=== PATIENT | female | born 1950 | race Two or more races ===

== ENCOUNTER 2023-12-31 15:55 | Inpatient (IN) | payer OTHER ==
[~2023-12-31] VITALS: Ht 165.1 cm; Wt 68.0 kg
[2023-12-31] MEDS ORDERED: LANTUS SOL100 UNIT/1 SQ (16:25)
[2023-12-31] MEDS ORDERED: EZALLOR SPRINKL10 MG PO (16:26)
[2023-12-31] MEDS ORDERED: FENOFIBRATE50 MG PO (16:26)
[2023-12-31] MEDS ORDERED: COZAAR25 MG PO (16:26)
[2023-12-31] MEDS ORDERED: HUMALOG100 UNIT/2 SQ (16:26)
[2023-12-31] MEDS ORDERED: LEVOTHYROXINE25 MCG PO (16:26)
[2023-12-31] MEDS ORDERED: GUAIFEN/DEXTROMETHORPHAN/PE 10 ML BLIST.PACK PO ONE (17:22)
[2023-12-31] MEDS ORDERED: METHYLPREDNISOLONE SOD SUCC 125 MG VIAL ONE (17:22)
[2023-12-31] MEDS ORDERED: METHYLPREDNISOLONE SOD SUCC 125 MG VIAL IV ONE (17:30)
[2023-12-31] MEDS ORDERED: GUAIFENESIN/DEXTROMETHORPHAN 10ML BLIST.PACK PO ONE (17:30)
[2023-12-31] MEDS ORDERED: LEVALBUTEROL HCL 1.25 MG/3 ML SOLUTION IH SCH ×2 (17:30→22:42)
[2023-12-31 17:46] LABS: ABG PH 7.399 (7.35-7.45); ABG PO2 68.2 mmHg (80-100); ABG pCO2 38.3 mmHg (35-45); BASE EXCESS -1.3 mmol/l; BICARBONATE 23.2 mmol/l (23-25); SaO2 93.3 %; Tco2 24.3 mmol/l
[2023-12-31] MEDS ORDERED: LEVALBUTEROL HCL 0.63 MG/3 ML SOLUTION IH ONE (17:52)
[2023-12-31 17:56] LABS: HEMATOCRIT 29.1 % (36.0-45.00); HEMOGLOBIN 9.2 g/dL (12.0-15.00); MEAN CELL VOLUME 73.2 fL (80.00-100.00); MEAN CORPUSCULAR HGB CONC 31.5 g/dl (32.0-36.0); PLATELET COUNT 320 K/uL (150-450); RED BLOOD COUNT 3.97 M/uL (4.00-6.00)
[2023-12-31 18:06] LABS: allen test SATISFACTORY; o2 21 %; puncture site RADIAL RIGHT
[2023-12-31 18:14] LABS: ALBUMIN 3.5 gm/dL (3.4-5.0); BILIRUBIN TOTAL 0.17 mg/dL (0.3-1.2); CALCIUM 9.4 mg/dL (8.5-10.1); CREATININE SERUM 1.4 mg/dL (0.55-1.02); GFR 36.76; GLOBULINA 4.2 G/DL (2.4-3.5); POTASSIUM 4.62 mEq/L (3.5-5.1); TOTAL PROTEIN 7.7 gm/dL (6.4-8.2)
[2023-12-31] MEDS ORDERED: IPRATROPIUM BROMIDE 0.5 MG/2.5 ML AMPUL.NEB IH SCH (22:42)
[2023-12-31] MEDS ORDERED: 0.9 % SODIUM CHLORIDE 1,000 ML IV SCH (22:45)
[2023-12-31] MEDS ORDERED: MONTELUKAST SODIUM 10 MG TABLET PO SCH (22:45)
[2023-12-31] MEDS ORDERED: ACETAMINOPHEN 500 MG GEL..CAP PO PRN (22:45)
[2023-12-31] MEDS ORDERED: AZITHROMYCIN 500 MG in DEXTROSE 5 % IN WATER 250 ML IV SCH (22:46)
[2023-12-31] MEDS ORDERED: CEFTRIAXONE SODIUM 2,000 MG in 0.9 % SODIUM CHLORIDE 100 ML IV SCH (22:46)
[2023-12-31] MEDS ORDERED: INSULIN LISPRO 1,000 UNIT/10 ML UNITS SUBCUTANEO PRN (23:00)
[2023-12-31] MEDS ORDERED: DEXTROSE 50 % IN WATER 0.5 G/ML DISP.SYRIN IV PRN (23:00)
[2023-12-31] MEDS ORDERED: INSULIN GLARGINE,HUM.REC.ANLOG 1,000 UNITS/10 ML UNITS SUBCUTANEO ONE (23:30)
[2024-01-01] MEDS ORDERED: AZITHROMYCIN 500 MG VIAL IV ONE (00:22)
[2024-01-01] MEDS ORDERED: CEFTRIAXONE SODIUM 2,000 MG VIAL ONE ×2 (00:22→06:49)
[2024-01-01 00:59] LABS: INR 1.02; PARTIAL THROMBOPLASTIN TIME 24.6 SECONDS (22.0-34.0); PROTHROMBIN TIME 11.1 SECONDS (9.0-11.5)
[2024-01-01] MEDS ORDERED: METHYLPREDNISOLONE SOD SUCC 40 MG VIAL IV SCH (01:00)
[2024-01-01] MEDS ORDERED: IPRATROPIUM BROMIDE 0.5 MG/2.5 ML AMPUL.NEB IH ONE (02:12)
[2024-01-01] MEDS ORDERED: LEVALBUTEROL HCL 1.25 MG/3 ML SOLUTION IH ONE (02:13)
[2024-01-01 03:05] LABS: PH,URINE 6.5 (5.0-8.0); URINE APPEARANCE Clear; URINE BILIRRUBIN Negative (NEGATIVE); URINE BLOOD Negative; URINE COLOR Yellow; URINE KETONE Negative (NEGATIVE); URINE LEUKOCYTE Negative; URINE NITRATE Negative; URINE PROTEIN Negative (NEGATIVE); URINE UROBILINOGEN 0.2 E.U./dl
[2024-01-01 03:08] LABS: URINE BACTERIA 27.6 uL (0.0-1933); URINE EPITHELIAL CELLS 1.9 uL (0.0-38.8); URINE RBC 3.5 uL (0.0-20.8)
[2024-01-01 03:27] LABS: URINE GLUCOSE >=1000 MG/DL (NEGATIVE); URINE WBC 0.7 uL (0.0-23.2)
[2024-01-01 05:00] VITALS: BP 82/46; O2SAT 91
[2024-01-01] MEDS ORDERED: FAMOTIDINE/PF 20 MG in 0.9 % SODIUM CHLORIDE 8 ML IV PUSH SCH (09:00)
[2024-01-01] MEDS ORDERED: LOSARTAN POTASSIUM 25 MG TABLET PO SCH (09:00)
[2024-01-01] MEDS ORDERED: ENOXAPARIN SODIUM 40 MG/0.4 ML SYRINGE SUBCUTANEO SCH (09:00)
[2024-01-01] MEDS ORDERED: INSULIN LISPRO 1,000 UNIT/10 ML UNITS SUBCUTANEO SCH (09:00)
[2024-01-01 09:37] VITALS: BP 143/65; O2SAT 100
[2024-01-01 16:57] VITALS: BP 118/56; O2SAT 95
[2024-01-01] MEDS ORDERED: AZITHROMYCIN 500 MG in DEXTROSE 5 % IN WATER 250 ML IV SCH (21:00)
[2024-01-01] MEDS ORDERED: IPRATROPIUM/ALBUTEROL SULFATE 3 ML AMPUL.NEB IH SCH (21:13)
[2024-01-01] MEDS ORDERED: INSULIN GLARGINE,HUM.REC.ANLOG 1,000 UNITS/10 ML UNITS SUBCUTANEO STA (21:41)
[2024-01-02] VITALS: BP 133/63; O2SAT 99
[2024-01-02] MEDS ORDERED: METHYLPREDNISOLONE SOD SUCC 40 MG VIAL IV SCH (01:00)
[2024-01-02] MEDS ORDERED: INSULIN LISPRO 1,000 UNIT/10 ML UNITS SUBCUTANEO STA (02:01)
[2024-01-02] MEDS ORDERED: INSULIN REGULAR, HUMAN 1,000 UNIT/10 ML UNITS IV STA (02:01)
[2024-01-02 06:58] LABS: HEMOGLOBIN 9.2 g/dL (12.0-15.00); MEAN CELL VOLUME 72.7 fL (80.00-100.00); MEAN CORPUSCULAR HGB CONC 31.6 g/dl (32.0-36.0); PLATELET COUNT 335 K/uL (150-450); RED BLOOD COUNT 3.99 M/uL (4.00-6.00)
[2024-01-02 07:19] LABS: ALBUMIN 3.6 gm/dL (3.4-5.0); BILIRUBIN TOTAL 0.15 mg/dL (0.3-1.2); CALCIUM 9.1 mg/dL (8.5-10.1); CREATININE SERUM 1.14 mg/dL (0.55-1.02); GFR 46.59; GLOBULINA 4.2 G/DL (2.4-3.5); MAGNESIUM 2.1 mg/dL (1.8-2.4); PHOSPHOROUS 2.4 mg/dL (2.5-4.9); POTASSIUM 4.97 mEq/L (3.5-5.1); TOTAL PROTEIN 7.8 gm/dL (6.4-8.2)
[2024-01-02] MEDS ORDERED: CEFTRIAXONE SODIUM 2,000 MG VIAL ONE (07:23)
[2024-01-02] MEDS ORDERED: INSULIN LISPRO 1,000 UNIT/10 ML UNITS SUBCUTANEO SCH (08:00)
[2024-01-02 08:55] VITALS: BP 136/62; O2SAT 97
[2024-01-02 14:46] LABS: ABG PH 7.378 (7.35-7.45); ABG PO2 87.3 mmHg (80-100); ABG pCO2 38.5 mmHg (35-45); BASE EXCESS -2.5 mmol/l; BICARBONATE 22.2 mmol/l (23-25); SaO2 96.3 %; Tco2 23.4 mmol/l
[2024-01-02 14:54] LABS: allen test SATISFACTORY; o2 21 %; puncture site RADIAL LEFT
[2024-01-02 16:00] VITALS: BP 129/65; O2SAT 95
[2024-01-02] MEDS ORDERED: INSULIN GLARGINE,HUM.REC.ANLOG 1,000 UNITS/10 ML UNITS SUBCUTANEO SCH (21:00)
[2024-01-03] VITALS: BP 128/67; O2SAT 98
[2024-01-03] MEDS ORDERED: LEVOTHYROXINE SODIUM 125 MCG TABLET PO SCH (06:00)
[2024-01-03] MEDS ORDERED: CEFTRIAXONE SODIUM 2,000 MG VIAL ONE (07:48)
[2024-01-03] MEDS ORDERED: INSULIN LISPRO 1,000 UNIT/10 ML UNITS SUBCUTANEO SCH (08:00)
[2024-01-03 08:41] VITALS: BP 140/70; O2SAT 96
[2024-01-03] MEDS ORDERED: INSULIN GLARGINE,HUM.REC.ANLOG 1,000 UNITS/10 ML UNITS SUBCUTANEO SCH (09:00)
[2024-01-03] MEDS ORDERED: INSULIN LISPRO 1,000 UNIT/10 ML UNITS SUBCUTANEO STA (14:52)
[2024-01-03] MEDS ORDERED: INSULIN REGULAR, HUMAN 1,000 UNIT/10 ML UNITS IV STA (14:53)
[2024-01-03 16:54] VITALS: BP 160/70; O2SAT 95
[2024-01-03] MEDS ORDERED: INSULIN GLARGINE,HUM.REC.ANLOG 1,000 UNITS/10 ML UNITS SUBCUTANEO STA (21:29)
[2024-01-04 01:21] VITALS: BP 137/83; O2SAT 99
[2024-01-04 06:53] LABS: HEMATOCRIT 29.7 % (36.0-45.00); HEMOGLOBIN 9.4 g/dL (12.0-15.00); MEAN CELL VOLUME 73.5 fL (80.00-100.00); MEAN CORPUSCULAR HEMOGLOBIN 23.2 pg (27.00-32.0); MEAN CORPUSCULAR HGB CONC 31.6 g/dl (32.0-36.0); PLATELET COUNT 312 K/uL (150-450); RED BLOOD COUNT 4.04 M/uL (4.00-6.00); RED CELL DISTRIBUTION WIDTH 17.7 % (11.5-14.5)
[2024-01-04 07:32] LABS: ALBUMIN 3.3 gm/dL (3.4-5.0); BILIRUBIN TOTAL 0.22 mg/dL (0.3-1.2); CALCIUM 9.3 mg/dL (8.5-10.1); CREATININE SERUM 1.04 mg/dL (0.55-1.02); GFR 51.8; GLOBULINA 3.9 G/DL (2.4-3.5); POTASSIUM 5.23 mEq/L (3.5-5.1); TOTAL PROTEIN 7.2 gm/dL (6.4-8.2)
[2024-01-04] MEDS ORDERED: INSULIN LISPRO 1,000 UNIT/10 ML UNITS SUBCUTANEO SCH (08:00)
[2024-01-04 08:36] VITALS: BP 118/66; O2SAT 95
[2024-01-04] MEDS ORDERED: CEFTRIAXONE SODIUM 2,000 MG VIAL ONE (08:38)
[2024-01-04 16:00] VITALS: BP 143/70; O2SAT 97
[2024-01-04] MEDS ORDERED: METHYLPREDNISOLONE SOD SUCC 40 MG VIAL IV SCH (17:00)
[2024-01-04] MEDS ORDERED: levoFLOXacin IN DEXTROSE 5 % 150 ML IV SCH (17:00)
[2024-01-04] MEDS ORDERED: INSULIN REGULAR, HUMAN 1,000 UNIT/10 ML UNITS IV STA (17:38)
[2024-01-04] MEDS ORDERED: DIPHENHYDRAMINE HCL 50 MG/ML VIAL 1ML IV STA (19:25)
[2024-01-04] MEDS ORDERED: INSULIN GLARGINE,HUM.REC.ANLOG 1,000 UNITS/10 ML UNITS SUBCUTANEO SCH (21:00)
[2024-01-05 00:17] VITALS: BP 140/75; O2SAT 98
[2024-01-05] MEDS ORDERED: DIPHENHYDRAMINE HCL 50 MG/ML VIAL 1ML IV SCH (05:00)
[2024-01-05 08:24] VITALS: BP 123/62; O2SAT 95
[2024-01-05] MEDS ORDERED: CEFTRIAXONE SODIUM 2,000 MG VIAL IV SCH (09:00)
[2024-01-05] MEDS ORDERED: INSULIN GLARGINE,HUM.REC.ANLOG 1,000 UNITS/10 ML UNITS SUBCUTANEO SCH ×2 (09:00→21:00)
[2024-01-05] MEDS ORDERED: CEFEPIME HCL 2,000 MG in DEXTROSE 5 % IN WATER 100 ML IV SCH (13:00)
[2024-01-05 16:00] VITALS: BP 138/67; O2SAT 98
[2024-01-06 00:35] VITALS: BP 138/67; O2SAT 97
[2024-01-06 08:13] VITALS: BP 132/77; O2SAT 95
[2024-01-06 16:00] VITALS: BP 153/73; O2SAT 97
[2024-01-07 00:56] VITALS: BP 145/86; O2SAT 98
[2024-01-07 08:00] VITALS: BP 135/67; O2SAT 94
[2024-01-07] MEDS ORDERED: INSULIN LISPRO 1,000 UNIT/10 ML UNITS SUBCUTANEO SCH (08:00)
[2024-01-07] MEDS ORDERED: GUAIFENESIN 200 MG/10 ML BLIST.PACK PO SCH (13:17)
[2024-01-07] MEDS ORDERED: SODIUM CHLORIDE FOR INHALATION 1 VIAL.NEB IH SCH (13:17)
[2024-01-07 17:09] VITALS: BP 132/75; O2SAT 98
[2024-01-08 00:30] VITALS: BP 134/67; O2SAT 95
[2024-01-08 06:52] LABS: HEMATOCRIT 28.8 % (36.0-45.00); HEMOGLOBIN 9.1 g/dL (12.0-15.00); MEAN CELL VOLUME 73.3 fL (80.00-100.00); MEAN CORPUSCULAR HEMOGLOBIN 23.1 pg (27.00-32.0); MEAN CORPUSCULAR HGB CONC 31.5 g/dl (32.0-36.0); PLATELET COUNT 280 K/uL (150-450); RED BLOOD COUNT 3.92 M/uL (4.00-6.00); RED CELL DISTRIBUTION WIDTH 18.1 % (11.5-14.5)
[2024-01-08 07:03] LABS: ALBUMIN 3.1 gm/dL (3.4-5.0); BILIRUBIN TOTAL 0.29 mg/dL (0.3-1.2); CREATININE SERUM 0.86 mg/dL (0.55-1.02); GFR 64.5; GLOBULINA 3.4 G/DL (2.4-3.5); MAGNESIUM 1.8 mg/dL (1.8-2.4); PHOSPHOROUS 3.3 mg/dL (2.5-4.9); POTASSIUM 4.14 mEq/L (3.5-5.1); TOTAL PROTEIN 6.5 gm/dL (6.4-8.2)
[2024-01-08 07:05] LABS: C-REACTIVE PROTEIN 0.61 MG/DL (0.00-0.29)
[2024-01-08] MEDS ORDERED: CODEINE/PROMETHAZINE HCL 1 ML ML PO SCH (12:00)
[2024-01-08 15:00] VITALS: BP 148/68; O2SAT 99
[2024-01-08] MEDS ORDERED: CODEINE PHOSPHATE/GUAIFENESIN 5 ML ML PO SCH (20:00)
[2024-01-08] MEDS ORDERED: MELATONIN 5 MG TABLET PO SCH (21:00)
[2024-01-09 01:06] VITALS: BP 104/61; O2SAT 97
[2024-01-09 08:29] VITALS: BP 149/72; O2SAT 97
[2024-01-09] MEDS ORDERED: PREDNISONE 10 MG TABLET PO SCH (17:00)
[2024-01-09] MEDS ORDERED: CETIRIZINE HCL 5MG/5ML BLIST.PACK PO SCH (17:00)
[2024-01-09] MEDS ORDERED: CIPROFLOXACIN HCL 500 MG TABLET PO SCH (17:00)
[2024-01-09 17:06] VITALS: BP 124/68; O2SAT 96
[2024-01-09] MEDS ORDERED: CETIRIZINE HCL 5 MG/5 ML ML PO SCH (18:00)
[2024-01-10 01:27] VITALS: BP 161/73; O2SAT 93
== END 2024-01-10 10:48 | disposition home or self-care (01) | DRG 202 ==
LOC: ER 15:57 → SEC-K 22:47 → SURG 22:47
PROVIDERS: General Practice; Internal Medicine Infectious Disease; ADMIT Internal Medicine; ATTEND Internal Medicine
PROC: BW24ZZZ Computerized Tomography (CT Scan) of Chest and Abdomen (ICD-10-PCS; principal; 2023-12-31)
DX: J45.41 Moderate persistent asthma with (acute) exacerbation (principal); J15.1 Pneumonia due to Pseudomonas; J44.1 Chronic obstructive pulmonary disease with (acute) exacerbation; N17.9 Acute kidney failure, unspecified; R09.02 Hypoxemia; E03.9 Hypothyroidism, unspecified; Z79.4 Long term (current) use of insulin; D64.9 Anemia, unspecified; E11.65 Type 2 diabetes mellitus with hyperglycemia; Z99.81 Dependence on supplemental oxygen; J32.9 Chronic sinusitis, unspecified; I12.9 Hypertensive chronic kidney disease with stage 1 through stage 4 chronic kidney disease, or unspecified chronic kidney disease; E11.22 Type 2 diabetes mellitus with diabetic chronic kidney disease; N18.9 Chronic kidney disease, unspecified